=== PATIENT | female | born 1960 | race Caucasian/White ===

== ENCOUNTER → 2018-02-21 11:56 | Outpatient (CLI) | payer OTHER, SELFPAY ==
--- NOTE | 2018-03-10 08:30 | P.HOLT.S_ITS ---
Pneumatic Systems Operator Report Referral & Results Date Patient Seen: 02/21/18 Requesting provider: Haley Haynes Indication: Cardiac arrhythmia Duration of monitoring (days): 7 Diary information: 1 diary entry was associated with sinus rhythm 8 patient triggered events associated with sinus rhythm Data: Minimum heart rate identified was 42 beats per minute at 05:36 on 2018 Maximum heart rate was 156 beats per minute at 08:35 on 02/27/2018 Impression: Relatively normal cardiac rhythm monitor. Very rare PACs and PVCs identified. There did not appear to be correlation between reported symptoms and noted dysrhythmia Clinical correlation suggested
== END ==
PROVIDERS: Visit Provider Family Medicine
DX: I49.9 Cardiac arrhythmia, unspecified (principal)
CPT/HCPCS: 0296T; 0298T

== ENCOUNTER → 2019-03-16 12:08 | Outpatient (CLI) | payer OTHER, SELFPAY ==
[2019-03-16 13:06] LABS: Add Manual Diff / Slide Review NO; Basophils Absolute Auto 100 /uL (0-100); Eosinophils Absolute Auto 200 /uL (0-450); Eosinophils Percent Auto 2.4 % (2-4); Hematocrit 41.9 % (36-46); Lymphocytes Absolute Auto 1900 /uL (1100-4500); Lymphocytes Percent Auto 21.7 % (25-40); Mean Corpuscular HGB Conc 33.5 % (30-36); Mean Corpuscular Hemoglobin 32.9 PG (26-34); Mean Corpuscular Volume 98.1 fL (80-100); Monocytes Absolute Auto 800 /uL (0-900); Monocytes Percent Auto 8.8 % (3-14); Neutrophils Absolute Auto 5900 /uL (1500-7000); Neutrophils Percent Auto 66.1 % (50-75); Platelet Count 250 X10^3/uL (150-400); Red Blood Cell Count 4.27 X10^6/uL (4.0-5.2); Red Cell Distribution Width 14.2 % (11.6-14.8); White Blood Cell Count 8.9 X10^3/uL (4.5-11.0)
[2019-03-16 13:19] LABS: Alanine Aminotransferase 13 IU/L (<35); Albumin 4.6 g/dL (3.5-5.0); Albumin Globulin Ratio 1.4 (1.0-2.8); Alkaline Phosphatase 76 U/L (38-126); Aspartate Aminotransferase 25 IU/L (14-36); BUN Creatinine Ratio 23.3 (6-22); Bilirubin Total 0.5 mg/dL (0.2-1.3); Blood Urea Nitrogen 14 mg/dL (7-17); Calcium 10.1 mg/dL (8.4-10.2); Carbon Dioxide 26 mmol/L (22-32); Chloride 106 mmol/L (98-107); Cholesterol 209 mg/dL (140-199); Estimated Glomerular Filt Rate > 60.0 mL/min (>60); Globulin 3.2 g/dL (1.7-4.1); Glucose 101 mg/dL (70-100); HDL Cholesterol 62 mg/dL (40-60); HEMOLYSIS < 15 (0-50); LDL Cholesterol Calculated 131 mg/dL (<100); Sodium 142 mmol/L (137-145); Total Protein 7.8 g/dL (6.3-8.2); Triglycerides 79 mg/dL (35-150)
[2019-03-16 16:42] LABS: Thyroid Stimulating Hormone 0.67 uIU/mL (0.47-4.68)
== END ==
PROVIDERS: PCP Family Medicine; Visit Provider Family Medicine
DX: Z76.89 Persons encountering health services in other specified circumstances (principal)
CPT/HCPCS: 36415; 80053; 80061; 84443; 85025

== ENCOUNTER → 2020-04-22 16:11 | Outpatient (CLI) | payer OTHER, SELFPAY ==
[2020-04-22 18:04] LABS: Add Manual Diff / Slide Review NO; Basophils Absolute Auto 100 /uL (0-100); Basophils Percent Auto 0.9 % (0-2); Eosinophils Absolute Auto 300 /uL (0-450); Eosinophils Percent Auto 2.9 % (2-4); Hematocrit 41.2 % (36-46); Hemoglobin 13.9 g/dL (12.0-16.0); Lymphocytes Absolute Auto 2400 /uL (1100-4500); Lymphocytes Percent Auto 25.8 % (25-40); Mean Corpuscular HGB Conc 33.7 % (30-36); Mean Corpuscular Volume 98.2 fL (80-100); Monocytes Absolute Auto 800 /uL (0-900); Monocytes Percent Auto 8.9 % (3-14); Neutrophils Absolute Auto 5700 /uL (1500-7000); Neutrophils Percent Auto 61.5 % (50-75); Platelet Count 254 X10^3/uL (150-400); White Blood Cell Count 9.2 X10^3/uL (4.5-11.0)
[2020-04-22 18:07] LABS: Alanine Aminotransferase 14 IU/L (<35); Albumin 4.4 g/dL (3.5-5.0); Albumin Globulin Ratio 1.6 (1.0-2.8); Alkaline Phosphatase 73 U/L (38-126); Aspartate Aminotransferase 23 IU/L (14-36); Bilirubin Total 0.3 mg/dL (0.2-1.3); Blood Urea Nitrogen 18 mg/dL (7-17); Calcium 9.4 mg/dL (8.4-10.2); Carbon Dioxide 25 mmol/L (22-32); Chloride 105 mmol/L (98-107); Cholesterol 204 mg/dL (140-199); Estimated Glomerular Filt Rate > 60.0 mL/min (>60); Globulin 2.7 g/dL (1.7-4.1); Glucose 97 mg/dL (70-100); HDL Cholesterol 59 mg/dL (40-60); HEMOLYSIS < 15 (0-50); LDL Cholesterol Calculated 123 mg/dL (<100); Potassium 3.6 mmol/L (3.4-5.1); Sodium 138 mmol/L (137-145); Total Protein 7.1 g/dL (6.3-8.2); Triglycerides 108 mg/dL (35-150)
[2020-04-22 20:10] LABS: TSH w/ Reflex to FT4 0.56 uIU/mL (0.47-4.68)
== END ==
PROVIDERS: PCP Family Medicine; Referring Provider Family Medicine; Visit Provider Family Medicine
DX: E78.5 Hyperlipidemia, unspecified (principal); Z13.228 Encounter for screening for other metabolic disorders; Z13.29 Encounter for screening for other suspected endocrine disorder
CPT/HCPCS: 36415; 80053; 80061; 84443; 85025

== ENCOUNTER → 2021-05-08 12:00 | Outpatient (CLI) | payer OTHER, SELFPAY ==
[2021-05-08 12:35] LABS: Add Manual Diff / Slide Review NO; Basophils Absolute Auto 100 /uL (0-100); Eosinophils Absolute Auto 500 /uL (0-450); Eosinophils Percent Auto 5.1 % (2-4); Hematocrit 41.7 % (36-46); Hemoglobin 14.2 g/dL (12.0-16.0); Lymphocytes Absolute Auto 2100 /uL (1100-4500); Lymphocytes Percent Auto 22.5 % (25-40); Mean Corpuscular Volume 97.1 fL (80-100); Monocytes Absolute Auto 900 /uL (0-900); Monocytes Percent Auto 9.2 % (3-14); Neutrophils Absolute Auto 5900 /uL (1500-7000); Neutrophils Percent Auto 62.2 % (50-75); Platelet Count 284 X10^3/uL (150-400); Red Blood Cell Count 4.29 X10^6/uL (4.0-5.2); Red Cell Distribution Width 14.2 % (11.6-14.8); White Blood Cell Count 9.5 X10^3/uL (4.5-11.0)
[2021-05-08 12:45] LABS: Hemoglobin A1C% w Est Avg Glu 5.4 % (4.0-6.0)
[2021-05-08 13:00] LABS: Alanine Aminotransferase 13 IU/L (<35); Albumin 4.6 g/dL (3.5-5.0); Albumin Globulin Ratio 1.5 (1.0-2.8); Alkaline Phosphatase 73 U/L (38-126); Aspartate Aminotransferase 25 IU/L (14-36); Bilirubin Total 0.4 mg/dL (0.2-1.3); Blood Urea Nitrogen 14 mg/dL (7-17); Calcium 9.7 mg/dL (8.4-10.2); Carbon Dioxide 23 mmol/L (22-32); Chloride 109 mmol/L (98-107); Estimated Glomerular Filt Rate > 60.0 mL/min (>60); Glucose 108 mg/dL (80-110); HEMOLYSIS < 15 (0-50); Sodium 141 mmol/L (137-145); Total Protein 7.6 g/dL (6.3-8.2)
[2021-05-08 13:20] LABS: Free T4, Direct Thyroxine 1.15 ng/dL (0.78-2.19)
[2021-05-08 13:34] LABS: Thyroid Stimulating Hormone 0.449 uIU/mL (0.47-4.68)
== END ==
PROVIDERS: PCP Family Medicine; Referring Provider Family Medicine; Visit Provider Family Medicine
DX: Z72.0 Tobacco use (principal); Z85.41 Personal history of malignant neoplasm of cervix uteri; Z90.49 Acquired absence of other specified parts of digestive tract
CPT/HCPCS: 36415; 80053; 83036; 84439; 84443; 85025

== ENCOUNTER → 2021-06-24 13:58 | Outpatient (CLI) | payer OTHER, SELFPAY | PROVIDERS: PCP Family Medicine; Referring Provider Family Medicine; Visit Provider Family Medicine | DX: Z13.820 Encounter for screening for osteoporosis (principal); Z78.0 Asymptomatic menopausal state; M85.89 Other specified disorders of bone density and structure, multiple sites | CPT/HCPCS: 77080 ==

== ENCOUNTER → 2021-07-22 14:25 | Outpatient (CLI) | payer OTHER, SELFPAY ==
[2021-07-22 15:50] LABS: COVID19 -Nasal RAPID Negative (Negative)
== END ==
PROVIDERS: PCP Family Medicine; Visit Provider Surgery
DX: Z20.822 Contact with and (suspected) exposure to COVID-19 (principal); Z01.812 Encounter for preprocedural laboratory examination
CPT/HCPCS: 87635; C9803

== ENCOUNTER 2021-07-23 12:27 | Day surgery (SDC) | payer OTHER, SELFPAY ==
[2021-07-23] VITALS (7 sets, daily range): BP systolic 134–164; BP diastolic 70–103; PULSE 57–82; RESP 16; TEMP 36.2–36.8; O2SAT 94–98; BMI 22.3
--- NOTE | 2021-07-23 | PATH_ITS ---
[facility] Accession Number: [id number] No. of containers..02 Tissue . 01 Material submitted: . PART A: colon - DESCENDING COLON POLYP PART B: rectum - RECTAL POLYP . 01 Diagnosis: A. Descending Colon, Polyp, Biopsy: Tubular adenoma. . B. Rectum, Polyp, Biopsy: Hyperplastic polyp with features of mucosal prolapse. MRV 07/27/2021 1732 Local . 01 Electronically signed: . Criselda Mayen MD, Pathologist NPI- [id number] . 01 Gross description: . A. Received in formalin, labeled with the patient's name and designated 1. Descending colon polyp, is one 1.0 cm weber friable biopsy, entirely submitted in cassette A1. B. Received in formalin, labeled with the patient's name and designated 2. Rectal polyp, are three 0.3-0.7 cm weber polypoid biopsies, entirely submitted in cassette B1. ([id number]) /SHELBI 07/25/2021 2040 Local . 01 Pathologist provided ICD-10: D12.4 . 01 CPT . 815543, [id number] Performed at: 01 [facility] [address] [place] [address] [address], [place], [place] [id number] MD Familia Thao MD Phone: [phone]
--- NOTE | 2021-07-23 13:18 | P.HP_ITS ---
History of Present Illness History of Present Illness Date Patient Seen: 07/23/21 Time Patient Seen: 13:18 Chief complaint: SCREENING COLONOSCOPY Narrative: Rochelle is a 60 year old woman who has not had a colonoscopy since the . She had cervical cancer and was treated with a hysterectomy and radiation. She had a subsequent large bowel resection for obstruction. She is unsure what segment was resected. She has had abdominal pain since starting the prep. Patient History Medical History (Updated 07/23/21 @ 13:22 by Santos Balderas MD) Encounter for tobacco use cessation counseling History of cervical cancer Preventative health care Tobacco use Well adult Surgical History History of partial colectomy History of radical hysterectomy Family & Social History Tobacco & Substance use: Smoking Status Current every day smoker alcohol intake former Meds Home Medications and Allergies Home Medications Medication Instructions Recorded Confirmed Type adjuvant AS01B (PF)vial 1 of 2 0.5 ml IM ONCE #0.5 mL 01/27/18 07/23/21 Rx (Shingrix Adjuvant Component-PF) multivitamin 1 tab PO DAILY 01/27/18 07/23/21 History nicotine 21 mg/24 hr daily 1 patch transdermal DAILY #28 ea 07/01/21 07/23/21 Rx transdermal patch omeprazole 20 mg capsule,delayed 20 mg PO DAILY #30 caps 07/06/21 07/23/21 Rx release atenolol 50 mg tablet 50 mg PO BID #180 tabs 07/10/21 07/23/21 Rx Allergies Allergy/AdvReac Type Severity Reaction Status Date / Time hydrocodone [From VICODIN] Allergy Intermediate Skin itch Verified 07/23/21 12:57 Exam Const General: comfortable Resp Effort & Inspection: normal respiratory effort Assessment & Plan Assessment and plan (1) Colon cancer screening: Status: Acute Plan We discussed the risks and benefits of colonoscopy for colon cancer screening. She would like to proceed. COVID-19 COVID-19 status: Negative Result date/Date tested (Pos, Neg/Pending): 07/22/21 Time Spent With Patient Critical Care time: I spent a total of [] minutes of critical care time on this patient's care today ; this time is exclusive of procedural time.
[2021-07-23] MEDS: LACTATED RINGERS 1,000 ML 42 ML IV (13:29)
[2021-07-23] MEDS: ONDANSETRON 4 MG/2 ML INJ IV ×2 (14:16→16:03)
--- NOTE | 2021-07-23 15:22 | PM.OP.COLON ---
Operative Date/Time/Diagnoses Date of procedure: 07/23/21 Time of procedure: 15:22 Pre-op diagnosis: Colon cancer screening Post-op diagnosis: same Procedure & Clinicians Study performed: Colonoscopy Same procedure as scheduled: Yes Surgeon: Santos Balderas Procedure Notes Procedure in detail: Surgeon: Santos Balderas MD Anesthesia: Dr. Billy Dhillon MD Procedure: The patient was brought to the endoscopy suite, placed in left lateral decubitus position. The patient was connected to monitoring devices. A time-out was performed. Sedation was administered. Once the patient was adequately sedated, a digital rectal exam was performed and was normal. The scope was then inserted and advanced to the cecum where the appendiceal orifice was identified and photographed. The scope was then slowly withdrawn over greater than 6 minutes. The mucosa was thoroughly inspected. There was a 6-7 mm polyp in the proximal descending colon which was removed with cold snare. There was a 67 m polyp in distal rectum removed with snare. The scope was retroflexed in the rectum. No abnormalities were noted. The scope was straightened and removed. The patient was awakened and brought to recovery. EBL: 5 mL Findings: 7 mm polyp in the descending colon 7 mm polyp in rectum Scope withdrawal time: 11 Sedation minutes: 19 Post-procedure Recommendations: Will call with biopsy results Disposition: PACU
== END 2021-07-23 16:25 | disposition home or self-care (01) ==
PROVIDERS: PCP Family Medicine; Referring Provider Surgery; Visit Provider Surgery
PROC: 0DJD8ZZ Inspection of Lower Intestinal Tract, Via Natural or Artificial Opening Endoscopic (ICD-10-PCS; CPT 45378; principal; 2021-07-23 13:30)
DX: Z12.11 Encounter for screening for malignant neoplasm of colon (principal); F17.210 Nicotine dependence, cigarettes, uncomplicated; R11.2 Nausea with vomiting, unspecified; D12.4 Benign neoplasm of descending colon; K62.1 Rectal polyp
CPT/HCPCS: 45385; 99152; J2405; J2704

== ENCOUNTER → 2022-03-29 15:10 | Outpatient (CLI) | payer OTHER, SELFPAY ==
--- NOTE | 2022-03-29 15:13 | DI.US.S_ITS ---
PROCEDURE: US THYROID INDICATIONS: Thyroid Nodule TECHNIQUE: Real-time scanning was performed of the thyroid gland, with image documentation. COMPARISON: None. FINDINGS: Right thyroid measures 4.2 x 1.3 x 1.5 cm. Left thyroid measures 4.7 x 1.0 x 1.1 cm. No nodule is identified. The isthmus measures 2.7 mm. The palpable area corresponds to the submandibular region. IMPRESSION: No actionable thyroid nodule identified. Overall thyroid is within normal limits. The palpable region corresponds to the submandibular region. Please consider dedicated imaging follow-up if there is clinical concern in this particular region. Dictated by: Misael Bañuelos M.D. on 03/29/2022 at 17:44 Approved by: Misael Bañuelos M.D. on 03/29/2022 at 17:45
--- NOTE | 2022-03-29 15:13 | DI.RAD.S_ITS ---
PROCEDURE: XR CHEST 2V INDICATIONS: Chronic cough in a smoker TECHNIQUE: 2 views of the chest were acquired. COMPARISON: None. FINDINGS: Surgical changes and devices: None. Lungs and pleura: Lungs are clear. No pleural effusions or pneumothorax. Mediastinum: Mediastinal contours are normal. Heart size is normal. Bones and chest wall: No suspicious bony abnormalities. Soft tissues appear unremarkable. IMPRESSION: No acute cardiopulmonary abnormality. Patient may qualify for CT lung cancer screening. Dictated by: Atif Alfonso M.D. on 03/29/2022 at 16:30 Approved by: Atif Alfonso M.D. on 03/29/2022 at 16:31
--- NOTE | 2022-03-29 15:13 | DI.MG.S_ITS ---
BILATERAL DIGITAL SCREENING MAMMOGRAM 3D/2D WITH CAD: 03/29/2022 CLINICAL: Routine screening. Comparison is made to exams dated: 06/12/2012 mammogram and 09/17/2011 mammogram - [facility]. There are scattered areas of fibroglandular density in both breasts (category b / 25%-50% glandular tissue). Current study was also evaluated with a Computer Aided Detection (CAD) system. No significant masses, calcifications, or other findings are seen in either breast. There has been no significant interval change. IMPRESSION: NEGATIVE There is no mammographic evidence of malignancy. A 1 year screening mammogram is recommended. Based on the Tyrer Cuzick model (a risk assessment model) the patient's lifetime risk is 5.5% and her 10 year risk is 2.3%. According to the ACR, ACS, and NCCN guidelines, an annual breast MRI exam along with mammogram is recommended if the patient's lifetime risk is 20% or greater. This exam was interpreted at Station ID: [id number]. NOTE: For mammograms, a report in lay terms will be sent to the patient. Approximately 15% of breast malignancies will not be visualized mammographically. In the management of a palpable breast mass, a negative mammogram must not discourage biopsy of a clinically suspicious lesion. Electronically Signed By: Atif aldana/namrata:03/29/2022 16:13:21 letter sent: Normal Exam ACR BI-RADS Category 1: Negative [id number]
== END ==
LOC: MAMMO 15:12
PROVIDERS: PCP Family Medicine; Referring Provider Family Medicine; Visit Provider Family Medicine
DX: Z12.31 Encounter for screening mammogram for malignant neoplasm of breast (principal); E04.1 Nontoxic single thyroid nodule; R05.3 Chronic cough; Z72.0 Tobacco use
CPT/HCPCS: 71046; 76536; 77063; 77067